=== PATIENT | female | born 1970 | race Caucasian/White ===

== ENCOUNTER 2020-04-12 16:03 | Emergency (ER) | payer OTHER ==
--- NOTE | 2020-04-12 16:09 | EDM.PDOC ---
<Carlos Torres - Last Filed: 04/12/20 19:13> ED HPI GENERAL MEDICAL PROBLEM - General Chief Complaint: Abdominal Pain Stated Complaint: PAIN RIGHT QUADRANT Time Seen by Provider: 04/12/20 16:08 Source of Information: Reports: Patient History Limitations: Reports: No Limitations - History of Present Illness INITIAL COMMENTS - FREE TEXT/NARRATIVE: 49-year-old female presents with abdominal pain. Pain started this morning and progressively worsening 2 hours ago. Pain is localized to the right flank and radiates to the right middle abdomen. Associated with nausea, vomiting x3, chills. Denies fever, hematuria, dysuria, urinary frequency. ROS: A 10-point review of systems, other than pertinent positives and negatives as stated per HPI, is otherwise negative Past medical history: No additional pertinent history Past Surgical history: No additional pertinent history Social history: No additional pertinent history Family history: No additional pertinent history PHYSICAL EXAM General: AOx4, GCS = 15, severe distress HEENT: dry mucous membrane Neck: supple, no meningismus, no Kernig or Brudzinski Cardiac: S1S2 RRR Respiratory: CTAB, no crackles or rales, no wheezing Abdomen: Soft, Right mid quadrant > epigastric ttp, no rebound or guarding, nondistended, no pulsatile mass. Back: right CVAT Musculoskeletal: NVI distally, no deformity Neuro: No focal deficits abd/back Pain Score (Numeric/FACES): 8 - Related Data Allergies Allergy/AdvReac Type Severity Reaction Status Date / Time No Known Allergies Allergy Verified 04/12/20 16:28 Home Meds: Home Meds Acetaminophen/oxyCODONE [Percocet 325-5 MG] 1 each PO Q6H #12 tab 04/12/20 [Rx] Ondansetron [Zofran ODT] 4 mg PO Q6H PRN #12 tab.dis 04/12/20 [Rx] ED ROS GENERAL - Review of Systems Review Of Systems: Comprehensive ROS is negative, except as noted in HPI. ED EXAM, GENERAL - Physical Exam Exam: See Below EKG INTERPRETATION EKG Interpretation Comments: 69 Bpm, NSR, normal QRS interval, no STEMI. EKG and rhythm strip interpreted by me at 1650 Course - Re-Assessments/Exams Free Text/Narrative Re-Assessment/Exam: 04/12/20 19:[address] Alas for disposition. Departure - Departure Disposition: Home, Self-Care 01 Clinical Impression: Colic, ureteral, Ureteral stone - Discharge Information *PRESCRIPTION DRUG MONITORING PROGRAM REVIEWED*: Not Applicable *COPY OF PRESCRIPTION DRUG MONITORING REPORT IN PATIENT JESSICA: Not Applicable Prescriptions: Acetaminophen/oxyCODONE [Percocet 325-5 MG] 1 each PO Q6H #12 tab Ondansetron [Zofran ODT] 4 mg PO Q6H PRN #12 tab.dis PRN Reason: Abdominal Pain Instructions: Pain Medicine Instructions, [id number] Referrals: Manfred Mathew MD [Physician] - 1 Week Forms: ED Department Discharge Additional Instructions: The following information is given to patients seen in the emergency department who are being discharged to home. This information is to outline your options for follow-up care. We provide all patients seen in our emergency department with a follow-up referral. The need for follow-up, as well as the timing and circumstances, are variable depending upon the specifics of your emergency department visit. If you don't have a primary care physician on staff, we will provide you with a referral. We always advise you to contact your personal physician following an emergency department visit to inform them of the circumstance of the visit and for follow-up with them and/or the need for any referrals to a consulting specialist. The emergency department will also refer you to a specialist when appropriate. This referral assures that you have the opportunity for follow-up care with a specialist. All of these measure are taken in an effort to provide you with optimal care, which includes your follow-up. Under all circumstances we always encourage you to contact your private physician who remains a resource for coordinating your care. When calling for follow-up care, please make the office aware that this follow-up is from your recent emergency room visit. If for any reason you are refused follow-up, please contact the [facility] Emergency Department at and asked to speak to the emergency department charge nurse. If you do not have a primary care doctor, please follow up with the clinics below within 3-5 days. Irena Co[facility] - Primary Care [address] [place] [id number] [facility] [address] [place] [id number] <Louis Alas - Last Filed: 04/12/20 19:37> Course - Vital Signs Text/Narrative:: The patient feels better and wants to be discharged. Her and her went over to the pharmacy and got her prescriptions. This patient was signed out to me by my partner at the end of his shift. Marcos Alas Last Recorded V/S: Last Vital Signs Temp 96.8 F L 04/12/20 16:25 Pulse 71 04/12/20 19:21 Resp 16 04/12/20 19:21 BP 114/80 04/12/20 19:21 Pulse Ox 96 04/12/20 19:21 - Orders/Labs/Meds Orders: Active Orders 24 hr Category Date Time Status EKG Documentation Completion [RC] STAT Care 04/12/20 16:12 Active Sodium Chloride 0.9% [Saline Flush] Med 04/12/20 16:12 Active 10 ml FLUSH ASDIRECTED PRN Sodium Chloride 0.9% [Saline Flush] Med 04/12/20 16:12 Active 2.5 ml FLUSH ASDIRECTED PRN Saline Lock Insert [OM.PC] Stat Oth 04/12/20 16:12 Ordered Medication Orders Sodium Chloride (Saline Flush) 10 ml FLUSH ASDIRECTED PRN PRN Reason: Keep Vein Open Last Admin: 04/12/20 18:49 Dose: 10 ml Documented by: PAO Sodium Chloride (Saline Flush) 2.5 ml FLUSH ASDIRECTED PRN PRN Reason: Keep Vein Open Last Admin: 04/12/20 18:49 Dose: 2.5 ml Documented by: PAO Labs: Laboratory Tests 04/12/20 04/12/20 04/12/20 Range/Units 16:35 16:35 16:35 WBC 7.08 (4.0-11.0) K/uL RBC 3.89 L (4.30-5.90) M/uL Hgb 11.6 L (12.0-16.0) g/dL Hct 35.0 L (36.0-46.0) % MCV 90.0 (80.0-98.0) fL MCH 29.8 (27.0-32.0) pg MCHC 33.1 (31.0-37.0) g/dL RDW Std Deviation 44.5 (28.0-62.0) fl RDW Coeff of Coreen 13 (11.0-15.0) % Plt Count 249 (150-400) K/uL MPV 9.80 (7.40-12.00) fL Neut % (Auto) 78.0 (48.0-80.0) % Lymph % (Auto) 18.9 (16.0-40.0) % Cottle % (Auto) 2.8 (0.0-15.0) % Eos % (Auto) 0.0 (0.0-7.0) % Baso % (Auto) 0.3 (0.0-1.5) % Neut # (Auto) 5.5 (1.4-5.7) K/uL Lymph # (Auto) 1.3 (0.6-2.4) K/uL Cottle # (Auto) 0.2 (0.0-0.8) K/uL Eos # (Auto) 0.0 (0.0-0.7) K/uL Baso # (Auto) 0.0 (0.0-0.1) K/uL Nucleated RBC % 0.0 /100WBC Nucleated RBCs # 0 K/uL Lactate 1.6 (0.20-2.00) mmol/L Sodium 137 (136-145) mmol/L Potassium 3.8 (3.5-5.1) mmol/L Chloride 100 (98-107) mmol/L Carbon Dioxide 24.0 (21.0-32.0) mmol/L BUN 17 (7.0-18.0) mg/dL Creatinine 0.9 (0.6-1.0) mg/dL Est Cr Clr Drug Dosing TNP Estimated GFR (MDRD) > 60.0 ml/min Glucose 134 H (74-106) mg/dL Calcium 8.3 L (8.5-10.1) mg/dL Total Bilirubin 1.1 H (0.2-1.0) mg/dL AST 14 L (15-37) IU/L ALT 19 (14-63) IU/L Alkaline Phosphatase 43 L (46-116) U/L Troponin I < 0.050 (0.000-0.056) ng/mL Total Protein 7.4 (6.4-8.2) g/dL Albumin 4.3 (3.4-5.0) g/dL Globulin 3.1 (2.6-4.0) g/dL Albumin/Globulin Ratio 1.4 (0.9-1.6) Lipase 153 (73-393) U/L Urine Color Urine Appearance Urine pH (5.0-8.0) Ur Specific Fortescue (1.001-1.035) Urine Protein (NEGATIVE) mg/dL Urine Glucose (UA) (NEGATIVE) mg/dL Urine Ketones (NEGATIVE) mg/dL Urine Occult Blood (NEGATIVE) Urine Nitrite (NEGATIVE) Urine Bilirubin (NEGATIVE) Urine Urobilinogen (<2.0) EU/dL Ur Leukocyte Esterase (NEGATIVE) Urine RBC (0-2/HPF) Urine WBC (0-5/HPF) Ur Epithelial Cells (NONE-FEW) Urine Bacteria (NEGATIVE) Urine HCG, Qual (NEGATIVE) 04/12/20 04/12/20 Range/Units 16:52 16:52 WBC (4.0-11.0) K/uL RBC (4.30-5.90) M/uL Hgb (12.0-16.0) g/dL Hct (36.0-46.0) % MCV (80.0-98.0) fL MCH (27.0-32.0) pg MCHC (31.0-37.0) g/dL RDW Std Deviation (28.0-62.0) fl RDW Coeff of Coreen (11.0-15.0) % Plt Count (150-400) K/uL MPV (7.40-12.00) fL Neut % (Auto) (48.0-80.0) % Lymph % (Auto) (16.0-40.0) % Cottle % (Auto) (0.0-15.0) % Eos % (Auto) (0.0-7.0) % Baso % (Auto) (0.0-1.5) % Neut # (Auto) (1.4-5.7) K/uL Lymph # (Auto) (0.6-2.4) K/uL Cottle # (Auto) (0.0-0.8) K/uL Eos # (Auto) (0.0-0.7) K/uL Baso # (Auto) (0.0-0.1) K/uL Nucleated RBC % /100WBC Nucleated RBCs # K/uL Lactate (0.20-2.00) mmol/L Sodium (136-145) mmol/L Potassium (3.5-5.1) mmol/L Chloride (98-107) mmol/L Carbon Dioxide (21.0-32.0) mmol/L BUN (7.0-18.0) mg/dL Creatinine (0.6-1.0) mg/dL Est Cr Clr Drug Dosing Estimated GFR (MDRD) ml/min Glucose (74-106) mg/dL Calcium (8.5-10.1) mg/dL Total Bilirubin (0.2-1.0) mg/dL AST (15-37) IU/L ALT (14-63) IU/L Alkaline Phosphatase (46-116) U/L Troponin I (0.000-0.056) ng/mL Total Protein (6.4-8.2) g/dL Albumin (3.4-5.0) g/dL Globulin (2.6-4.0) g/dL Albumin/Globulin Ratio (0.9-1.6) Lipase (73-393) U/L Urine Color YELLOW Urine Appearance CLEAR Urine pH 6.0 (5.0-8.0) Ur Specific Fortescue >= 1.030 (1.001-1.035) Urine Protein NEGATIVE (NEGATIVE) mg/dL Urine Glucose (UA) NEGATIVE (NEGATIVE) mg/dL Urine Ketones >=80 (NEGATIVE) mg/dL Urine Occult Blood MODERATE H (NEGATIVE) Urine Nitrite NEGATIVE (NEGATIVE) Urine Bilirubin NEGATIVE (NEGATIVE) Urine Urobilinogen 0.2 (<2.0) EU/dL Ur Leukocyte Esterase NEGATIVE (NEGATIVE) Urine RBC 2-3 (0-2/HPF) Urine WBC 0-1 (0-5/HPF) Ur Epithelial Cells RARE (NONE-FEW) Urine Bacteria RARE (NEGATIVE) Urine HCG, Qual NEGATIVE (NEGATIVE) Meds: Medications Generic Name Dose Route Start Last Admin Trade Name Compa PRN Reason Stop Dose Admin Sodium Chloride 10 ml 04/12/20 16:12 04/12/20 18:49 Saline Flush FLUSH 10 ml ASDIRECTED PRN Administration Keep Vein Open Sodium Chloride 2.5 ml 04/12/20 16:12 04/12/20 18:49 Saline Flush FLUSH 2.5 ml ASDIRECTED PRN Administration Keep Vein Open Discontinued Medications Generic Name Dose Route Start Last Admin Trade Name Compa PRN Reason Stop Dose Admin Hydromorphone HCl 1 mg 04/12/20 18:41 04/12/20 18:48 Dilaudid IVPUSH 04/12/20 18:42 1 mg ONETIME ONE Administration Lactated Ringer's 1,000 mls @ 999 mls/hr 04/12/20 16:21 04/12/20 16:35 Ringers, Lactated IV 04/12/20 17:21 999 mls/hr .BOLUS ONE Administration Ketorolac Tromethamine 30 mg 04/12/20 16:21 04/12/20 16:35 Toradol IVPUSH 04/12/20 16:22 30 mg ONETIME ONE Administration Morphine Sulfate 4 mg 04/12/20 16:21 04/12/20 16:40 Morphine IVPUSH 04/12/20 16:22 4 mg ONETIME ONE Administration Ondansetron HCl 4 mg 04/12/20 16:21 04/12/20 16:35 Zofran IVPUSH 04/12/20 16:22 4 mg ONETIME ONE Administration Departure - Departure Time of Disposition: 19:45 Sepsis Event Note (ED) - Focused Exam Vital Signs: Vital Signs Temp Pulse Resp BP Pulse Ox 04/12/20 19:21 71 16 114/80 96 04/12/20 18:14 77 18 122/67 97 04/12/20 17:45 74 121/64 98 04/12/20 16:25 96.8 F L 71 18 112/61 97
[2020-04-12] MEDS ORDERED: Sodium Chloride 0.9% 2.5 ML Syringe FLUSH PRN (16:12)
[2020-04-12] MEDS ORDERED: Sodium Chloride 0.9% 10 ML Syringe FLUSH PRN (16:12)
[2020-04-12] MEDS ORDERED: Ketorolac 30 MG/ML SDV IVPUSH ONE (16:21)
[2020-04-12] MEDS ORDERED: Ondansetron 4 MG/2 ML SDV IVPUSH ONE (16:21)
[2020-04-12] MEDS ORDERED: Lactated Ringers 1,000 ML IV ONE (16:21)
[2020-04-12] MEDS ORDERED: Morphine 4 MG/ML Syringe IVPUSH ONE (16:21)
[2020-04-12 17:15] LABS: BLOOD UREA NITROGEN,BUN 17 mg/dL (7.0-18.0); CHLORIDE,CL 100 mmol/L (98-107); GLUCOSE RANDOM 134 mg/dL (74-106); LIPASE 153 U/L (73-393); POTASSIUM,K 3.8 mmol/L (3.5-5.1); SODIUM,NA 137 mmol/L (136-145)
--- NOTE | 2020-04-12 18:22 | US ---
Limited abdominal ultrasound: Multiple real-time images of the upper right abdomen were obtained. Comparison: No previous abdominal imaging is available. Liver shows a small echogenic lesion within the right lobe measuring 1.2 cm most likely due to a small hemangioma. No additional abnormality is appreciated within the liver. Pancreas appears within normal limits. Gallbladder contains no shadowing gallstones. No gallbladder wall thickening or biliary duct dilatation is seen. Right kidney shows evidence of hydronephrosis. Right kidney has a length of 11.1 cm. Impression: 1. Hydronephrosis within the right kidney. Etiology is not identified on this study. 2. Small echogenic lesion within the right lobe of the liver most likely representing hemangioma. 3. No additional abnormality is appreciated on right upper quadrant abdominal ultrasound. Diagnostic code #3 This report was dictated in MDT
--- NOTE | 2020-04-12 18:28 | CT ---
CT abdomen and pelvis Technique: Multiple axial sections were obtained from above the dome of the diaphragm inferiorly through the pubic symphysis. Intravenous and oral contrast not utilized. Study has been performed as a ureteral stone protocol. Findings: Dilated right ureter is seen. This is caused by an obstructing distal right ureteral stone measuring 3-4 mm in size and is located located within the UVJ. No other ureteral calculi are seen. Right kidney shows a small nonobstructing stone measuring about 3 mm. No other abnormal calcifications are seen within the kidneys. Other findings: Visualized lung bases show nothing acute. 2 small low density lesions are noted within the right lobe of the liver having Hounsfield unit measurements of cysts. Largest abnormality measures 1.4 cm. No additional abnormality is appreciated within the noncontrast liver. Spleen shows a small calcified granuloma. Spleen size is normal. Adrenal glands show no nodule. Pancreas shows no discrete abnormality. Gallbladder contains no calcified gallstones. Aorta shows no aneurysm. No retroperitoneal adenopathy or mesenteric abnormalities are seen. No pelvic mass or adenopathy is seen. No free fluid or inflammatory change is appreciated. Appendix is felt to be visualized and is normal in size. Bone window settings were reviewed which show no acute osseous finding. Impression: 1. Dilated right ureter caused by a 3-4 mm obstructing stone located at the UVJ. 2. Nonobstructing small stone within the mid right kidney. 3. No other acute abnormality is appreciated on noncontrast CT study of the abdomen and pelvis. Diagnostic code #3 This report was dictated in MDT
[2020-04-12] MEDS ORDERED: HYDROmorphone 1 MG/ML Syringe IVPUSH ONE (18:41)
== END 2020-04-12 19:52 | disposition home or self-care (01) ==
LOC: MW.ED 16:03
DX: N20.2 Calculus of kidney with calculus of ureter (principal)
CPT/HCPCS: 36415; 74176; 76705; 80053; 81001; 81025; 83605; 83690; 84484; 85025; 93005; 96361; 96374; 96375; 99284; J1170; J1885; J2270; J2405; J7120

== ENCOUNTER 2020-07-23 20:09 | Emergency (ER) | payer OTHER ==
[2020-07-23] MEDS ORDERED: Ketorolac 15 MG/ML SDV IM ONE (20:24)
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
== END 2020-07-23 21:15 | disposition home or self-care (01) ==
LOC: MW.ED 20:09
DX: M54.2 Cervicalgia (principal); V43.53XA Car driver injured in collision with pick-up truck in traffic accident, initial encounter
CPT/HCPCS: 96372; 99283; J1885

== ENCOUNTER 2023-03-18 04:20 | Emergency (ER) | payer OTHER | END 2023-03-18 04:55 | disposition home or self-care (01) | LOC: MW.ED 04:20 | DX: R42 Dizziness and giddiness (principal); R11.10 Vomiting, unspecified; R20.2 Paresthesia of skin | CPT/HCPCS: 93005; 93010; 99282; 99284 ==